=== PATIENT | female | born 1995 | race African-American/Black ===

== ENCOUNTER 2018-01-16 19:30 | Emergency (ER) | payer OTHER ==
[~2018-01-16] VITALS: Ht 162.6 cm; Wt 67.6 kg
[~2018-01-16 19:30] MED LIST: FLEXERIL PO; MOBIC15 MG PO
[2018-01-16 19:36] VITALS: BP 123/47
[2018-01-16] MEDS ORDERED: MOBIC15 MG PO (20:58)
== END 2018-01-16 21:15 | disposition home or self-care (01) ==
LOC: ER 19:30
DX: S96.911A Strain of unspecified muscle and tendon at ankle and foot level, right foot, initial encounter (principal); F17.210 Nicotine dependence, cigarettes, uncomplicated; X58.XXXA Exposure to other specified factors, initial encounter; Y93.89 Activity, other specified; Y92.89 Other specified places as the place of occurrence of the external cause; Y99.8 Other external cause status